=== PATIENT | female | born 1985 | race African-American/Black ===

== ENCOUNTER 2021-10-28 08:24 | Emergency (ER) | payer OTHER ==
[~2021-10-28] VITALS: Ht 170.2 cm; Wt 131.5 kg
[2021-10-28 08:27] VITALS: BP 138/92
== END 2021-10-28 08:57 | disposition home or self-care (01) ==
LOC: ER 08:24
DX: U07.1 COVID-19 (principal); Z90.89 Acquired absence of other organs; Z88.0 Allergy status to penicillin; Z88.2 Allergy status to sulfonamides; Z88.5 Allergy status to narcotic agent